=== PATIENT | male | born 1995 | race Caucasian/White ===

== ENCOUNTER → 2022-01-22 | Outpatient (CLI) | payer OTHER ==
[2022-01-23 05:07] LABS: HSV 1 TYPE SPECIFIC IGG <0.91 index (0.00-0.90)
== END | disposition home or self-care (01) ==
LOC: LABMN 09:10
PROVIDERS: ATTEND Chiropractor
DX: B00.9 Herpesviral infection, unspecified (principal)
CPT/HCPCS: 86695; 86696